=== PATIENT | male | born 1955 | race Two or more races ===

== ENCOUNTER 2016-04-23 08:24 | Inpatient (IN) | payer BC, OTHER ==
[2016-04-11 11:36] VITALS: BMI 29.4
--- NOTE | 2016-04-23 07:42 | HP ---
Admitting History and Physical - Admission Chief Complaint: left knee osteoarthritis x years History of Present Illness: 60 year old male presents today in regard to his left knee. Longstanding history of left knee osteoarthritis. Patient complaining of left knee pain, limited ROM and difficulty ambulating. Patient has failed conservative treatment including PO medication, activity modification and injections. Patient would like to proceed with a left total knee arthroplasty. - Past Medical History Cardiovascular: Yes: Hyperlipdemia Endocrine: Yes: Hypothyroidism - Past Surgical History Additional Past Surgical History: See written H&P - Smoking History Smoking history: Current every day smoker If you are a former smoker, when did you quit?: 10 - Alcohol/Substance Use Hx Alcohol Use: No Home Medications - Allergies Allergies/Adverse Reactions: Allergies Allergy/AdvReac Type Severity Reaction Status Date / Time No Known Drug Allergies Allergy Verified 04/11/16 11:25 - Home Medications Home Medications: Ambulatory Orders Atorvastatin Ca [Lipitor] 20 mg PO DAILY 04/11/16 Duloxetine HCl [Cymbalta] 60 mg PO DAILY 04/11/16 Etanercept [Enbrel] 50 mg SQ WEEKLY 04/11/16 Hydrocodone/Acetaminophen [[place] 5-325 Tablet] 1 each PO Q4H PRN MDD 6 04/11/16 Levothyroxine [Synthroid -] 25 mcg PO DAILY 04/11/16 Levothyroxine [Synthroid -] 200 mcg PO DAILY 04/11/16 Nabumetone 1,000 mg PO BID 04/11/16 Review of Systems - Review of Systems Musculoskeletal: reports: Decreased ROM (left knee), Joint Pain Physical Examination Constitutional: Yes: Well Nourished, No Distress Eyes: Yes: Conjunctiva Clear HENT: Yes: Atraumatic Neck: Yes: Supple Cardiovascular: Yes: Regular Rate and Rhythm Respiratory: Yes: Regular Gastrointestinal: Yes: Soft ...Rectal Exam: Yes: Deferred Musculoskeletal: Yes: Joint Stiffness, Joint Swelling (Limited ROM left knee) Assessment/Plan 60 year old male with longstanding left knee osteoarthritis. Continued pain, limited ROM and difficulty ambulating. Patient has failed conservative treatment. Proceed with a left total knee arthroplasty.
[2016-04-23] MEDS ORDERED: GABAPENTIN 300 MG CAPSULE (FP) PO ONE (08:50)
[2016-04-23] MEDS ORDERED: TRANEXAMIC ACID 1000 MG/10 ML VIAL IVPUSH ONE (08:50)
[2016-04-23] MEDS ORDERED: CELECOXIB 200 MG CAPSULE PO ONE (08:50)
[2016-04-23] MEDS ORDERED: CEFAZOLIN 2 GM in DEXTROSE 5%-WATER - 50 ML IVPB ONE (08:50)
[2016-04-23] MEDS ORDERED: oxyCODONE HCL 10 MG SUSTAINED ACTING TABLET PO ONE (08:50)
[2016-04-23] MEDS ORDERED: ROPIVICAINE 0.2%/MORPH PF/KETOROLAC - 51ML DISP.SYRINGE IA ONE ×2 (08:50→11:05)
[2016-04-23] MEDS ORDERED: ROPIVACAINE 0.2% 400ML 400 ML ML NR ONE (10:00)
[2016-04-23] MEDS ORDERED: VANCOMYCIN 1,000 MG VIAL (RESTRICTED TO ID ONLY) ONE (11:05)
[2016-04-23] MEDS ORDERED: ceFAZolin SODIUM 1 GM VIAL ONE ×3 (11:05→15:20)
[2016-04-23] MEDS ORDERED: TRANEXAMIC ACID 1000 MG/10 ML VIAL ONE ×2 (11:05→12:48)
[2016-04-23] MEDS ORDERED: MIDAZOLAM HCL 2 MG/2 ML SINGLE DOSE VIAL ONE ×4 (11:13→16:16)
[2016-04-23] MEDS ORDERED: BUPIVACAINE HCL/PF 0.5% (5MG/ML) 10 ML VIAL ONE (11:45)
[2016-04-23] MEDS ORDERED: PROPOFOL 20 ML ONE ×6 (11:47→16:10)
[2016-04-23] MEDS ORDERED: ONDANSETRON 4 MG/2 ML VIAL ONE (12:15)
[2016-04-23] MEDS ORDERED: DEXAMETHASONE SOD PHOSPHATE 4 MG/1 ML VIAL ONE (12:15)
--- NOTE | 2016-04-23 16:41 | OP ---
Operative Note - Note: Operative Date: 04/23/16 Pre-Operative Diagnosis: Left knee OA / inflammatory arthritis Operation: Left TKA, synevectomy, MCL repair Post-Operative Diagnosis: Same as Pre-op Surgeon: Sly Lackey Metal Mold Dresser: Tiny Shine Anesthesia: Spinal Estimated Blood Loss (mls): 200
[2016-04-23] MEDS ORDERED: MAG HYDROX/AL HYDROX/SIMETH 30 ML UNIT-DOSE CUP PO PRN (16:42)
[2016-04-23] MEDS ORDERED: MAGNESIUM HYDROX 2400MG/30ML ORAL SUSPENSION 30 ML CUP PO PRN (16:42)
[2016-04-23] MEDS ORDERED: ONDANSETRON 4 MG/2 ML VIAL IVPB PRN (16:42)
[2016-04-23] MEDS ORDERED: LACTATED RINGERS SOLUTION 1,000 ML IV SCH (16:45)
[2016-04-23] MEDS ORDERED: traMADol HCL 50 MG TABLET ONE (17:03)
[2016-04-23] MEDS ORDERED: ACETAMINOPHEN INJECTION 100 ML IVPB ONE (17:03)
[2016-04-23] MEDS ORDERED: oxyCODONE HCL 5 MG TABLET PO PRN (17:15)
[2016-04-23] MEDS ORDERED: ACETAMINOPHEN 1000 MG/100 ML VIAL (NON FORMULARY) IVPB ONE ×2 (17:15)
[2016-04-23] MEDS ORDERED: KETOROLAC TROMETHAMINE 30 MG/1 ML VIAL IVPUSH ONE (17:20)
[2016-04-23] MEDS: traMADol HCL 50 MG TABLET PO ONE (17:30)
[2016-04-23] MEDS ORDERED: CEFAZOLIN 2 GM in DEXTROSE 5%-WATER - 50 ML IVPB SCH (18:00)
[2016-04-23] MEDS: CEFAZOLIN 2 GM/D5W 50 ML IVPB SCH (20:00)
[2016-04-23] MEDS: ASCORBIC ACID 500 MG TABLET (FP) PO SCH (21:19)
[2016-04-23] MEDS: GABAPENTIN 300 MG CAPSULE (FP) PO SCH (21:20)
[2016-04-23] MEDS: oxyCODONE HCL 10 MG SUSTAINED ACTING TABLET PO SCH (21:20)
[2016-04-23] MEDS: SENNOSIDES/DOCUSATE COMBO (SENNA PLUS) TABLET (UD) PO SCH (21:20)
[2016-04-23] MEDS: CELECOXIB 200 MG CAPSULE PO SCH (21:20)
[2016-04-23] MEDS: ACETAMINOPHEN 325 MG TABLET (FP) PO SCH (23:00)
[2016-04-23] MEDS: KETOROLAC TROMETHAMINE 30 MG/1 ML VIAL IVPUSH SCH (23:00)
[2016-04-23] MEDS: traMADol HCL 50 MG TABLET PO SCH (23:00)
[2016-04-24] MEDS: oxyCODONE HCL 5 MG TABLET PO PRN ×6 (00:24→21:15)
[2016-04-24] MEDS: CEFAZOLIN 2 GM/D5W 50 ML IVPB SCH (04:00)
[2016-04-24] MEDS: traMADol HCL 50 MG TABLET PO SCH ×3 (06:00→22:05)
[2016-04-24] MEDS: LEVOTHYROXINE NA 25 MCG TABLET (FP) PO SCH (06:01)
[2016-04-24] MEDS: ACETAMINOPHEN 325 MG TABLET (FP) PO SCH ×2 (06:01→12:00)
[2016-04-24] MEDS: KETOROLAC TROMETHAMINE 30 MG/1 ML VIAL IVPUSH SCH ×2 (06:04→11:00)
[2016-04-24] MEDS ORDERED: PT OWN MED DRAWER 7, Y5N ONE (06:07)
[2016-04-24] MEDS ORDERED: LEVOTHYROXINE NA 200 MCG TABLET PO SCH (07:00)
[2016-04-24] MEDS ORDERED: ASPIRIN 325 MG TABLET PO SCH (08:00)
[2016-04-24] MEDS: MULTIVITAMINS (DAILY MVI) TABLET (FP) PO SCH (09:15)
[2016-04-24] MEDS: DULoxetine HCL 30 MG CAPSULE.DR (FP) PO SCH (09:15)
[2016-04-24] MEDS: PANTOPRAZOLE 40 MG TABLET (FP) PO SCH (09:16)
[2016-04-24] MEDS: ASCORBIC ACID 500 MG TABLET (FP) PO SCH ×2 (09:16→21:15)
[2016-04-24] MEDS: oxyCODONE HCL 10 MG SUSTAINED ACTING TABLET PO SCH ×2 (09:16→21:14)
[2016-04-24] MEDS: CELECOXIB 200 MG CAPSULE PO SCH ×2 (09:16→21:15)
[2016-04-24] MEDS: GABAPENTIN 300 MG CAPSULE (FP) PO SCH ×2 (09:17→21:15)
[2016-04-24 09:53] LABS: CALCIUM 8.6 mg/dl (8.4-10.2)
[2016-04-24 09:53] LABS: WHITE BLOOD COUNT 8.8 K/mm3 (4.0-10.0)
[2016-04-24 09:54] LABS: MCH 30.1 pg (25.7-33.7); MCHC 32.9 g/dl (32.0-35.9); MEAN CELL VOLUME 91.5 fl (80-96); MEAN PLT VOLUME 8.5 fl (7.5-11.1); PLATELET COUNT 376 K/MM3 (134-434); RDW 13.4 % (11.9-15.9)
[2016-04-24] MEDS: SENNOSIDES/DOCUSATE COMBO (SENNA PLUS) TABLET (UD) PO SCH ×2 (10:00→21:15)
--- NOTE | 2016-04-24 10:34 | SPEC ---
DATE OF OPERATION: 04/23/2016 PREOPERATIVE DIAGNOSIS: Left knee osteoarthritis/inflammatory arthritis. POSTOPERATIVE DIAGNOSIS: Left knee osteoarthritis/inflammatory arthritis. PROCEDURE: Left total knee replacement with stemmed components. ATTENDING DOCTOR: Hermelinda Oro MD TECH ED TEACHER: CORWIN Gallegos ANESTHESIA: Spinal plus sedation. ESTIMATED BLOOD LOSS: 200 mL. COMPLICATIONS: None. DISPOSITION: The patient was transferred to the PACU in stable condition. SPECIMENS: Resected bone was sent for pathology analysis. IMPLANTS USED: Tami Triathlon TS several components, Tami Triathlon TS size 7 tibial component, 35-mm patellar component, 16-mm TS polyethylene component, Arthrex Corkscrew FT. INDICATIONS: This is a 60-year-old male with longstanding history of inflammatory arthritis who presented to the office complaining of left knee pain. He was seen and examined by Dr. Valdovinos and Dr. Oro and diagnosed with severe left knee arthritis. The patient was initially treated with nonoperative treatments such as medications, injections, and physical therapy, but failed conservative management. He had very severe pain to the point of needing opioids to function. He was indicated for a left total knee replacement. The risks, benefits, and alternatives to the procedure were explained to the patient in great detail, and he elected to proceed with the surgery. DESCRIPTION OF PROCEDURE: On the day of surgery, the patient was taken to the operating room and placed on the OR table. Spinal anesthesia was administered by the anesthesiologist. The patient was then positioned supine on the table and all bony prominences were padded. A nonsterile tourniquet was placed on the proximal thigh. The knee was then prepped and draped in the usual sterile fashion and intravenous antibiotics were given for infection prophylaxis. A surgical time-out was then performed with the team, and the patients identity, procedure, side, availability of implants, and the administration of antibiotics was confirmed. The leg was then elevated and exsanguinated, and the tourniquet was inflated. With the knee flexed, a midline incision was made and carried down through the subcutaneous fat to the underlying retinaculum. A medial parapatellar arthrotomy was performed. This was followed by a subperiosteal dissection of the tissue off the proximal, medial tibia. A portion of fat pad was removed from under the patellar tendon, and a small portion of fat was excised off the distal supracondylar femur. The knee was then flexed further and the anterior horn of the lateral meniscus was released from the midline. Next, the anterior and posterior cruciate ligaments were transected. Osteophytes were removed from both the femur and tibia. Grade 4 changes were noted diffusely throughout the knee. Hohmann retractors were then placed around the distal femur. The starting drill was used to enter the intramedullary canal. The starting point had been chosen by checking the radiographs and anatomy. Proper alignment and intramedullary placement was then confirmed by placing the long narrow dakota into the femur. Next, the distal femoral cutting guide was adjusted to 6 degrees of valgus and pinned to the femur. The bone resection was assessed using an re-wing. An approximately 10mm distal cut was made and the cut pieces measured. Once this was complete, the sizing guide was used to determine which size femoral component should be used. Next, the appropriately sized 4-in-1 cutting block was then placed at the correct amount of external rotation and the re wing was used to assure that there would be no notching of the anterior cortex of the femur. Once this was done, Hohmann retractors were used to protect the medial and lateral collateral ligaments, and all appropriate bone cuts were made. Attention was then turned to the tibia. Hohmann retractors were used to translate the tibia anteriorly and protect the collateral ligaments. The medial and lateral menisci were removed. The extramedullary tibial alignment guide was then placed and adjusted for rotation, varus/valgus, and slope. The height of the cutting block was adjusted to the level of the desired bone resection and then pinned in place. The proximal tibia was then cut with a saw and the bone was removed and measured. Once this was completed, trial components were placed and the knee was taken through a full range of motion. Soft tissue balance was assessed in both flexion and extension and found to be appropriate. The knee was stable throughout the full range of motion. The knee was then put into extension and the patella everted. The synovium around the patella was circumscribed with electrocautery. A caliper was used to measure the patellar thickness and a saw was then used to resect the patella at the chondro-osseous junction. The cut surface was then sized and drilled for the appropriate patellar button, with care taken to medialize it. A trial patella was then placed and the knee was again taken through a full range of motion. The knee was found to have both good balance and good patellar tracking. All of the components were removed except the tibial base plate. The appropriate instrumentation was used to drill and punch the proximal tibia for the keel of the final component. All bony surfaces were then cleaned with pulsatile lavage and dried. Bone cement was then prepared on the back table, and final components were cemented in place in the usual fashion. Extruded cement was removed. The polyethylene trial was placed, the knee was put into extension, and axial pressure was applied for compression while the cement hardened. The patellar button was similarly cemented into place. Once the cement had hardened, the knee was taken through a full range of motion to assess stability, balance, and patellar tracking. This was found to be optimal and the trial polyethylene was exchanged for the appropriately sized real implant. The wound was then thoroughly irrigated with normal saline. No. 1 Polysorb and 0 VLoc 180 barbed sutures were used to close the arthrotomy. No. 1 Polysorb and 2-0 Polysorb sutures were used in the subcutaneous tissues. The skin was closed using both 3-0 VLoc 90 suture in a running subcuticular fashion and SwiftSet skin adhesive. Once this was completed a sterile Aquacel dressing and compressive Jey-wrap was applied. The tourniquet was then deflated and the patient was awakened and taken to the PACU in stable condition. ADDENDUM: Because of this, patients history of inflammatory arthritis, stemmed revision components were used for additional intramedullary support of the implants. 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 The initial steps of the case involves a radical synovectomy to remove this pannus and reestablish the gutters as visualization of the joint was compromised due to the excessive amount of pannus. After synovectomy/removal of pannus, the MCL was found to be somewhat attenuated. At the end of the case, this was directly repaired with FiberWire sutures in a locked Krackow stitch pattern. In addition, the semitendinosus tendon was harvested leaving its distal tibial insertion in place, and this was attached to the medial epicondyle femur to reinforce our MCL repair with an Arthrex Corkscrew suture anchor. The MCL was oversewn with the semitendinosus for additional strength. After final components were implanted and prior to wound closure, a 3-minute dilute Betadine lavage was performed as per the [facility] protocol. Following this, the knee was irrigated with 3 L of normal saline containing Ancef via pulsatile lavage. Would closure was subsequently begun. HERMELINDA ORO M.D. [id number]
[2016-04-24] MEDS: traMADol HCL 50 MG TABLET PO ONE (11:13)
--- NOTE | 2016-04-24 14:29 | PN ---
Progress Note (short form) - Note Progress Note: 60M POD1 s/p L TKR under spinal anesthetic with continuous adductor canal catheter and selective tibial nerve blocks. Pt is doing well, states that pain is well controlled, AVSS, reports no anesthetic complications. Sensory and motor function are intact in both lower extremities.
[2016-04-24] MEDS ORDERED: ATORVASTATIN CA 20 MG TABLET (FP) PO SCH (22:00)
[2016-04-24] MEDS ORDERED: ZOLPIDEM TARTRATE 5 MG TABLET PO PRN (22:01)
[2016-04-24] MEDS ORDERED: ZOLPIDEM TARTRATE 5 MG TABLET PO ONE (22:02)
[2016-04-24] MEDS ORDERED: ZOLPIDEM TARTRATE 5 MG TABLET ONE (22:04)
--- NOTE | 2016-04-24 22:06 | PN ---
Progress Note (short form) - Note Progress Note: Pt seen and examined. Comfortable. No complaints AVSS Selected Entries 04/24/16 13:50 Temperature 98.6 F Pulse Rate 73 Respiratory 18 Rate O2 Sat by Pulse 96 Oximetry (%) Laboratory Tests 04/24/16 04/24/16 07:00 07:20 WBC 8.8 Hgb 9.8 L Hct 29.6 L Plt Count 376 Sodium 134 L Potassium 4.6 Chloride 103 Carbon Dioxide 25 Anion Gap 6 L BUN 23 H Creatinine 1.0 Random Glucose 108 H Calcium 8.6 Gen: NAD LLE: c/d/i, NVID A/P 60yo male POD#1 s/p L TKA, MCL repair 1. PT/OOB - WBAT with hinged knee brace on whenever weightbearing 2. D/C home tomorrow
[2016-04-25] MEDS: ACETAMINOPHEN 325 MG TABLET (FP) PO SCH ×4 (00:56→13:14)
[2016-04-25] MEDS: oxyCODONE HCL 5 MG TABLET PO PRN ×4 (01:02→13:14)
[2016-04-25 04:58] VITALS: BP 128/69; PULSE 86; TEMP 98.6
[2016-04-25] MEDS: traMADol HCL 50 MG TABLET PO SCH (05:17)
[2016-04-25] MEDS: LEVOTHYROXINE NA 25 MCG TABLET (FP) PO SCH (06:22)
[2016-04-25] MEDS ORDERED: LEVOTHYROXINE NA 100 MCG TABLET (FP) PO SCH (07:00)
[2016-04-25 09:24] LABS: MCH 29.9 pg (25.7-33.7); MCHC 32.5 g/dl (32.0-35.9); MEAN CELL VOLUME 91.9 fl (80-96); MEAN PLT VOLUME 8.4 fl (7.5-11.1); PLATELET COUNT 343 K/MM3 (134-434); RDW 13.5 % (11.9-15.9); WHITE BLOOD COUNT 6.2 K/mm3 (4.0-10.0)
[2016-04-25 09:45] LABS: CALCIUM 8.3 mg/dl (8.4-10.2); CREATININE 0.8 mg/dl (0.6-1.3)
[2016-04-25] MEDS: DULoxetine HCL 30 MG CAPSULE.DR (FP) PO SCH (10:03)
[2016-04-25] MEDS: CELECOXIB 200 MG CAPSULE PO SCH (10:04)
[2016-04-25] MEDS: oxyCODONE HCL 10 MG SUSTAINED ACTING TABLET PO SCH (10:04)
[2016-04-25] MEDS: SENNOSIDES/DOCUSATE COMBO (SENNA PLUS) TABLET (UD) PO SCH (10:05)
[2016-04-25] MEDS: GABAPENTIN 300 MG CAPSULE (FP) PO SCH (10:05)
[2016-04-25] MEDS: PANTOPRAZOLE 40 MG TABLET (FP) PO SCH (10:05)
[2016-04-25] MEDS: MULTIVITAMINS (DAILY MVI) TABLET (FP) PO SCH (10:05)
[2016-04-25] MEDS: ASCORBIC ACID 500 MG TABLET (FP) PO SCH (10:05)
--- NOTE | 2016-04-25 10:49 | PN ---
Progress Note (short form) - Note Progress Note: Pt seen and examined. Comfortable. No complaints AVSS Selected Entries 04/25/16 04:53 Temperature 98.6 F Pulse Rate 86 Respiratory 20 Rate Blood Pressure 128/69 O2 Sat by Pulse 95 Oximetry (%) Oxygen Delivery Room Air Method Laboratory Tests 04/25/16 04/25/16 07:27 07:27 WBC 6.2 Hgb 9.0 L Hct 27.7 L Plt Count 343 Sodium 136 Potassium 4.1 Chloride 103 Carbon Dioxide 28 Anion Gap 5 L BUN 17 D Creatinine 0.8 Random Glucose 92 Calcium 8.3 L Gen: NAD LLE: c/d/i, NVID A/P 60yo male POD#2 s/p L TKA, MCL repair 1. PT/OOB - WBAT with hinged knee brace on whenever weightbearing - can remove for ROM exercises 2. D/C home today
--- NOTE | 2016-04-25 11:29 | DS ---
Physical Examination Vital Signs: Vital Signs Temperature 98.6 F 04/25/16 04:53 Pulse Rate 86 04/25/16 04:53 Respiratory Rate 20 04/25/16 04:53 Blood Pressure 128/69 04/25/16 04:53 O2 Sat by Pulse Oximetry (%) 95 04/25/16 08:00 Labs: CBC, BMP 04/25/16 07:27 04/25/16 07:27 Discharge Summary Reason For Visit: LEFT KNEE OSTEOARTHRITIS Current Active Problems Arthritis of left knee (Acute) Procedures: Principal: left total knee replacement Hospital Course: Admitted for elective surgery. Procedure performed without complications. Pt received postoperative antibiotic prophylaxis and DVT ppx. Ambulated with physical therapy. Stable for discharge home with outpatient followup. Condition: Stable - Instructions Diet, Activity, Other Instructions: Dr. Lackey - Knee Replacement Instructions Keep the Aquacel dressing on until removed by Dr. Lackey in 10-14 days - it is antibacterial and waterproof and you can shower with it on. Call the office for a follow-up appointment with Dr. Lackey in 10-14 days. (I will be at a conference next week out of town; Drs. Valdovinos and Anderson will be in the office if you need anything) Take one Aspirin 325mg daily for 6 weeks to prevent blood clots in your legs. Take one Pantoprazole 40mg daily for 6 weeks to protect against heartburn and ulcers. Take Celebrex 200mg twice daily for 30 days to reduce swelling and inflammation. Take one Ambien at bedtime as needed for insomnia. For pain: *Mild pain (1-3/10): Take 1 Tramadol tablet every 4 hours as needed. Moderate pain (4-6/10): Take 1 Tramadol tablet and 1 Percocet tablet every 4 hours as needed. Severe pain (7-10/10): Take 1 Tramadol tablet and 2 Percocet tablets every 4 hours as needed. Activity: You can put as much weight on the operative leg as you want WITH THE KNEE BRACE ON. You will need the knee brace for a total of 4 weeks to protect the MCL reinforcement while it heals. Several times a day, take the brace off and try to bend the knee as far as you can to prevent stiffness Right after you get home, there will be a physical therapist coming to your house to help you walk around and bend/straighten your knee. Make sure to have the brace on when you're walking but take it off before the therapist does range -of-motion exercises. After your follow-up appointment with Dr. Lackey, you will be sent for more intensive outpatient physical therapy which will include machines and equipment that the home therapist cannot bring to your house. Always use a walker or cane for balance and to prevent falls. Disposition: VNS/HOME HEALTH CARE - Home Medications Comprehensive Discharge Medication List: Ambulatory Orders Atorvastatin Ca [Lipitor] 20 mg PO DAILY 04/11/16 Duloxetine HCl [Cymbalta] 60 mg PO DAILY 04/11/16 Levothyroxine [Synthroid -] 25 mcg PO DAILY 04/11/16 Levothyroxine [Synthroid -] 200 mcg PO DAILY 04/11/16 Ascorbic Acid [Vitamin C -] 500 mg PO BID tablet 04/25/16 Aspirin [ASA -] 325 mg PO DAILY@0800 #40 tablet 04/25/16 Celecoxib [CeleBREX -] 200 mg PO BID #60 capsule 04/25/16 Multivitamins [Multivit ([facility] Formul[facility])] 1 tab PO DAILY tab 04/25/16 Oxycodone HCl/Acetaminophen [Percocet 5-325 mg Tablet] 1 - 2 tab PO Q4H PRN #60 tablet MDD 10 04/25/16 Pantoprazole Sodium [Protonix -] 40 mg PO DAILY #40 tablet.ec 04/25/16 Sennosides/Docusate Sodium [Pericolace -] 1 tablet PO BID tablet 04/25/16 Tramadol HCl [Ultram -] 50 mg PO Q4H PRN #90 tablet MDD 6 04/25/16 Zolpidem Tartrate [Ambien] 5 mg PO HS PRN #30 tablet MDD 1 04/25/16
--- NOTE | 2016-04-25 12:05 | PN ---
Progress Note, Physician Chief Complaint: Pt. ambulating and voiding. pain controlled with adductor canal catheter and selective tibial nerve block. No anesthesia complaints. - Current Medication List Current Medications: Active Medications Acetaminophen (Tylenol -) 650 mg PO Q6H [facility] Stop: 04/26/16 00:00 Last Admin: 04/25/16 05:17 Dose: 650 mg Al Hydroxide/Mg Hydroxide (Mylanta Oral Suspension -) 30 ml PO Q4H PRN PRN Reason: DYSPEPSIA Ascorbic Acid (Vitamin C -) 500 mg PO BID [facility] Last Admin: 04/25/16 10:05 Dose: 500 mg Aspirin (Asa -) 325 mg PO DAILY@0800 [facility] Last Admin: 04/24/16 07:31 Dose: 325 mg Atorvastatin Calcium (Lipitor -) 20 mg PO HS [facility] Last Admin: 04/24/16 21:14 Dose: 20 mg Celecoxib (Celebrex -) 200 mg PO BID [facility] Last Admin: 04/25/16 10:04 Dose: 200 mg Duloxetine HCl (Cymbalta -) 60 mg PO DAILY [facility] Last Admin: 04/25/16 10:03 Dose: 60 mg Gabapentin (Neurontin -) 300 mg PO BID [facility] Stop: 04/26/16 21:59 Last Admin: 04/25/16 10:05 Dose: 300 mg Levothyroxine Sodium (Synthroid -) 25 mcg PO DAILY@0700 [facility] Last Admin: 04/25/16 06:22 Dose: 25 mcg Levothyroxine Sodium (Synthroid -) 200 mcg PO DAILY@0700 [facility] Last Admin: 04/25/16 06:22 Dose: 200 mcg Magnesium Hydroxide (Milk Of Magnesia -) 30 ml PO PRN PRN PRN Reason: CONSTIPATION Multivitamins/Minerals/Vitamin C (Tab-A-Vit -) 1 tab PO DAILY [facility] Last Admin: 04/25/16 10:05 Dose: 1 tab Ondansetron HCl (Zofran Injection) 4 mg IVPB Q6H PRN PRN Reason: NAUSEA Oxycodone HCl (Oxycontin -) 10 mg PO BID [facility] Stop: 04/26/16 17:16 Last Admin: 04/25/16 10:04 Dose: 10 mg Oxycodone HCl (Roxicodone -) 5 mg PO Q4H PRN PRN Reason: PAIN Stop: 04/26/16 17:16 Last Admin: 04/23/16 21:25 Dose: 5 mg Oxycodone HCl (Roxicodone -) 10 mg PO Q4H PRN PRN Reason: PAIN Stop: 04/26/16 17:16 Last Admin: 04/25/16 10:04 Dose: 10 mg Pantoprazole Sodium (Protonix -) 40 mg PO DAILY [facility] Last Admin: 04/25/16 10:05 Dose: 40 mg Senna/Docusate Sodium (Pericolace -) 1 tablet PO BID [facility] Last Admin: 04/25/16 10:05 Dose: 1 tablet Tramadol HCl (Ultram -) 50 mg PO Q6H [facility] Last Admin: 04/25/16 05:17 Dose: 50 mg Zolpidem Tartrate (Ambien -) 5 mg PO HS PRN PRN Reason: INSOMNIA - Objective Vital Signs: Vital Signs Temperature 98.6 F 04/25/16 04:53 Pulse Rate 86 04/25/16 04:53 Respiratory Rate 20 04/25/16 04:53 Blood Pressure 128/69 04/25/16 04:53 O2 Sat by Pulse Oximetry (%) 95 04/25/16 08:00 Constitutional: Yes: Well Nourished, No Distress, Calm Musculoskeletal: Yes: WNL Neurological: Yes: WNL, Alert, Oriented ...Motor Strength: WNL Labs: CBC, BMP 04/25/16 07:27 04/25/16 07:27 Assessment/Plan POD#1 s/p Left total knee replacement under spinal with adductor canal catheter and selective tibial nerve block. Doing well. D/C adductor canal catheter.
--- NOTE | 2016-04-25 14:31 | PATH ---
Surgical Pathology Report Patient Name: MALLY FARR Med. Rec. #: [id number] /Age/Gender: 1955 (Age: 60) / M Account: [id number] Location: [facility] Taken: 04/23/2016 Received: 04/23/2016 Reported: 04/25/2016 Physicians: Sly Lackey M.D. Specimen(s) Received LEFT KNEE BONES AND TISSUE Clinical History Left knee osteoarthritis Final Diagnosis BONE AND SOFT TISSUE, LEFT KNEE, TOTAL KNEE REPLACEMENT: SYNOVIUM WITH MARKED CHRONIC PLASMACYTIC INFLAMMATION WITH FIBRIN EXUDATE MOST CONSISTENT WITH INFLAMMATORY ARTHRITIS. BONE AND CARTILAGE WITH FEATURES OF OSTEOARTHRITIS. Comment: Overlapping histologic features of osteoarthritis and inflammatory arthritis are identified in this specimen. Clinical and serological correlations are suggested. Electronically Signed Julito Campbell M.D. Gross Description Received in formalin, labeled "left knee bones and tissue" is a 21.0 x 15.0 x 3.5 cm aggregate of multiple irregular portions of bone and soft tissue with preserved tibial plateau and femoral condyles. The tibial plateau measures 9.3 x 6.5 x 2.2 cm. There is a 1.7 cm in greatest dimension area of eburnation present. The remaining articular surfaces are paredes-yellow and focally granular. The underlying trabecular bone is paredes-yellow and heterogenous. The soft tissue displays focal possible activity. Lining Repairer sections are submitted in 2 cassettes as follows: 1-soft tissue; 2-bone, following decalcification. 04/24/201604/24/2016
== END 2016-04-25 14:04 | disposition home health service (06) | DRG 470 ==
LOC: FM/S 08:38
PROVIDERS: ADMIT Student in an Organized Health Care Education/Training Program; ATTEND Student in an Organized Health Care Education/Training Program
PROC: 0SRD0J9 Replacement of Left Knee Joint with Synthetic Substitute, Cemented, Open Approach (ICD-10-PCS; principal; 2016-04-23 11:55)
DX: M17.12 Unilateral primary osteoarthritis, left knee (principal); E78.5 Hyperlipidemia, unspecified; E03.9 Hypothyroidism, unspecified; F17.210 Nicotine dependence, cigarettes, uncomplicated; K21.9 Gastro-esophageal reflux disease without esophagitis; G47.30 Sleep apnea, unspecified
CPT/HCPCS: 36415; 73560-TC-LT; 80048; 85027; 88305-TC; 88311-TC; 94010; 94760; 97116-GP; 97162-PG